=== PATIENT | female | born 1965 | race Hispanic/Latino ===

== ENCOUNTER 2018-03-28 12:10 | Emergency (ER) | payer MEDICARE ==
[2018-03-28] MEDS ORDERED: HYDROCODONE/ACETAMINOPHEN 10/325 MG TAB ONE (12:30)
[2018-03-28 13:28] LABS: EOSINOPHILS % (AUTO) 2.2 % (0.0-8.0); HEMATOCRIT 31.2 % (36-48); LYMPHOCYTES % (AUTO) 22.1 % (21.0-51.0); MEAN CORPUSCULAR HEMOGLOBIN 28.1 pg (27.0-33.0); MEAN CORPUSCULAR HGB CONC 33.3 g/dL (32.0-36.0); MEAN CORPUSCULAR VOLUME 84.5 fL (79-99); MONOCYTES % (AUTO) 7.9 % (3.0-13.0); NEUTROPHILS % (AUTO) 66.8 % (40.0-77.0); NUCLEATED RED BLOOD CELLS 0.1 % (0.0-0.19); PLATELET COUNT (AUTO) 276 K/uL (130-400); RED CELL DISTRIBUTION WIDTH 14.2 % (11.0-15.5); WHITE BLOOD COUNT (AUTO) 9.5 K/uL (4.8-10.8)
[2018-03-28] MEDS ORDERED: MIDAZOLAM HCL 5 MG/ML 2ML VIAL IV ONE ×2 (13:35→14:07)
[2018-03-28] MEDS ORDERED: ETOMIDATE 2 MG/ML 10 ML VIAL ONE (13:35)
[2018-03-28 13:48] LABS: INR 0.95 (0.85-1.15); PARTIAL THROMBOPLASTIN TIME 36.6 SEC (26.3-35.5)
[2018-03-28 14:20] LABS: CREATININE 1.6 mg/dL (0.5-1.5); POTASSIUM 4.2 mmol/L (3.5-5.1)
[2018-03-28 14:25] LABS: ALBUMIN 3.2 g/dL (3.5-5.0); BILIRUBIN,TOTAL 0.2 mg/dL (0.2-1.0)
== END 2018-03-28 16:50 | disposition home or self-care (01) ==
LOC: EDH 12:10
DX: S82.851A Displaced trimalleolar fracture of right lower leg, initial encounter for closed fracture (principal); S93.04XA Dislocation of right ankle joint, initial encounter; R79.1 Abnormal coagulation profile; E11.9 Type 2 diabetes mellitus without complications; E78.5 Hyperlipidemia, unspecified; I10 Essential (primary) hypertension; E07.9 Disorder of thyroid, unspecified; Z85.41 Personal history of malignant neoplasm of cervix uteri; Z95.1 Presence of aortocoronary bypass graft; Z90.710 Acquired absence of both cervix and uterus; Z72.0 Tobacco use; W22.8XXA Striking against or struck by other objects, initial encounter; Y93.89 Activity, other specified; Y92.89 Other specified places as the place of occurrence of the external cause; Y99.8 Other external cause status
CPT/HCPCS: 27818; 36415; 73600; 73610; 80053; 85025; 85610; 85730; 93005; 96374; 99152; 99285; J2250; J3490

== ENCOUNTER → 2019-06-03 | Outpatient (CLI) | payer MEDICARE ==
[~2019-06-03] VITALS: Ht 154.9 cm; Wt 92.5 kg
[~2019-06-03] MED LIST: REGADENOSON 0.4 MG/5 ML PF SYG IVP SCH
== END | disposition home or self-care (01) ==
LOC: SHCH 08:53
PROVIDERS: ATTEND Internal Medicine Cardiovascular Disease
DX: R07.9 Chest pain, unspecified (principal); R06.09 Other forms of dyspnea
CPT/HCPCS: 78452; 93017; 96374; A9500 ×2; J2785

== ENCOUNTER → 2019-07-27 | Outpatient (CLI) | payer MEDICARE ==
[~2019-07-27] VITALS: Ht 154.9 cm; Wt 91.4 kg
[~2019-07-27] MED LIST changes: +ALLO100T PO; +ASPI81TA40 PO; +ATOR40TA69 PO; +BIOTIN PO; +BISA5TAB12 PO; +CHOL500050 PO; +FERR325T22 PO; +FLUO40CA7 PO; +GABA600T10 PO; +ICOS1CAP PO; +INSU200I SQ; +INSU300I SQ; +LABE200T5 PO; +LEVO137T2 PO; +LORA10TA7 PO; +PHARMACY COMMUNICATION MISC SCH; +PIOG15TA66 PO; +RANO10004 PO; -REGADENOSON 0.4 MG/5 ML PF SYG IVP SCH; +SODI650T PO; +SODIUM CHLORIDE 0.9% 500ML 500 ML IV SCH; +TORS20TA4 PO; +VICTOZA SQ
[2019-07-27 08:20] VITALS: BP 141/62
[2019-07-27 08:43] LABS: BASOPHILS % (AUTO) 0.5 % (0.0-5.0); EOSINOPHILS % (AUTO) 1.9 % (0.0-8.0); HEMATOCRIT 31.4 % (36-48); LYMPHOCYTES % (AUTO) 25.6 % (21.0-51.0); MEAN CORPUSCULAR HEMOGLOBIN 28.7 pg (27.0-33.0); MEAN CORPUSCULAR HGB CONC 33.8 g/dL (32.0-36.0); MEAN CORPUSCULAR VOLUME 85.1 fL (79-99); MONOCYTES % (AUTO) 7.7 % (3.0-13.0); NEUTROPHILS % (AUTO) 64.3 % (40.0-77.0); PLATELET COUNT (AUTO) 260 K/uL (130-400); RED CELL DISTRIBUTION WIDTH 14.1 % (11.0-15.5); WHITE BLOOD COUNT (AUTO) 8.9 K/uL (4.8-10.8)
[2019-07-27 08:43] LABS: APPEARANCE,URINE CLEAR (CLEAR); BILIRUBIN,URINE NEGATIVE (NEGATIVE); COLOR,URINE YELLOW (YELLOW); GLUCOSE, URINE (UA) NEGATIVE (NEGATIVE); KETONES,URINE NEGATIVE (NEGATIVE); LEUKOCYTE ESTERASE ,URINE TRACE (NEGATIVE); NITRATE,URINE NEGATIVE (NEGATIVE); OCCULT BLOOD,URINE NEGATIVE (NEGATIVE); PH,URINE 5.5 (5.0-8.0); PROTEIN,URINE 100 mg/dL (NEGATIVE); UROBILINOGEN,URINE 0.2 mg/dL (0.2-1.0)
[2019-07-27 08:51] LABS: CREATININE 2.6 mg/dL (0.5-1.5); POTASSIUM 4.4 mmol/L (3.5-5.1)
[2019-07-27 08:54] LABS: INR 0.95 (0.85-1.15); PARTIAL THROMBOPLASTIN TIME 34.3 SEC (26.3-35.5)
--- NOTE | 2019-07-27 09:00 | NUR ---
ALLERGY PT DENIES ALLERGY TO FISH OIL
[2019-07-27 09:12] LABS: BACTERIA,URINE Rare /HPF (None Seen); RBC,URINE 0-1 /HPF (0-1); SQUAMOUS EPITHELIAL CELL,UR Rare /HPF (0-2); WBC,URINE 0-1 /HPF (0-1)
--- NOTE | 2019-07-27 09:29 | NUR ---
NOTE PT STATES SHE IS A JEHOVA'S WITNESS BUT WILL CONSENT TO RECEIVE BLOOD TRANSFUSION DEEMED NECESSARY Addendum: 07/27/19 at 0931 by HIEN LR RN RN Amended: Links added.
--- NOTE | 2019-07-28 10:25 | NUR ---
labs abnormal labs reported to Janna Sawyer QUALITY ASSURANCE MONITOR FINAL( Dr. Chauncey Prater), she stated she will speak to Dr. Chauncey Prater and call back with further orders. reported bun, crea, h&h,
--- NOTE | 2019-07-28 13:00 | NUR ---
LABS RECEIVED CALL BACK FOR ABNORMAL LABS , PER DR Chauncey RENEE CANCEL PROCEDURE,
== END ==
LOC: EDSTATUS 08:00 → DAH 10:00
PROVIDERS: ATTEND Internal Medicine Cardiovascular Disease
DX: Z01.818 Encounter for other preprocedural examination (principal); I25.119 Atherosclerotic heart disease of native coronary artery with unspecified angina pectoris; Z79.01 Long term (current) use of anticoagulants
CPT/HCPCS: 36415; 71045; 80048; 81001; 85025; 85610; 85730; 93005

== ENCOUNTER 2021-10-08 06:02 | Day surgery (SDC) | payer OTHER, MEDICARE ==
[~2021-10-08] VITALS: Ht 152.4 cm; Wt 91.6 kg
[~2021-10-08 06:02] MED LIST changes: -BIOTIN PO; +CALC-909 PO; -PHARMACY COMMUNICATION MISC SCH; -PIOG15TA66 PO; -RANO10004 PO; +RANO10005 PO; -SODI650T PO; -SODIUM CHLORIDE 0.9% 500ML 500 ML IV SCH; -TORS20TA4 PO; -VICTOZA SQ
[2021-10-08] MEDS ORDERED: 0.9%NACL 1000ML 1,000 ML IV ONE (06:19)
[2021-10-08 07:04] LABS: CREATININE 4.8 mg/dL (0.5-1.5)
[2021-10-08 07:08] VITALS: BP 189/74
== END 2021-10-08 07:35 | disposition home or self-care (01) ==
LOC: DAH 06:02 → ENDO 06:02
PROVIDERS: ATTEND Internal Medicine Gastroenterology
DX: K59.00 Constipation, unspecified (principal); Z86.010 Personal history of colon polyps; Z20.822 Contact with and (suspected) exposure to COVID-19; K44.9 Diaphragmatic hernia without obstruction or gangrene; K76.0 Fatty (change of) liver, not elsewhere classified; E11.22 Type 2 diabetes mellitus with diabetic chronic kidney disease; I12.0 Hypertensive chronic kidney disease with stage 5 chronic kidney disease or end stage renal disease; N18.6 End stage renal disease; D64.9 Anemia, unspecified; I25.10 Atherosclerotic heart disease of native coronary artery without angina pectoris; E78.5 Hyperlipidemia, unspecified; E03.9 Hypothyroidism, unspecified; M10.9 Gout, unspecified; Z99.2 Dependence on renal dialysis; Z79.4 Long term (current) use of insulin; Z90.710 Acquired absence of both cervix and uterus; Z90.49 Acquired absence of other specified parts of digestive tract; Z98.890 Other specified postprocedural states; Z90.721 Acquired absence of ovaries, unilateral; Z83.3 Family history of diabetes mellitus; Z87.891 Personal history of nicotine dependence; Z72.89 Other problems related to lifestyle; Z79.899 Other long term (current) drug therapy; Z53.8 Procedure and treatment not carried out for other reasons
CPT/HCPCS: 36415; 80048; 82948; 87635; C9803; J7030

== ENCOUNTER 2021-10-25 15:27 | Emergency (ER) | payer OTHER, MEDICARE ==
[~2021-10-25] VITALS: Ht 152.4 cm; Wt 94.8 kg
[2021-10-25] MEDS ORDERED: ATENOLOL 25 MG TABLET PO ONE (17:30)
[2021-10-25] MEDS ORDERED: ATENOLOL 25 MG TABLET ONE (17:38)
[2021-10-25 19:33] VITALS: BP 193/76
== END 2021-10-25 19:32 | disposition home or self-care (01) ==
LOC: EDH 15:27
DX: J06.9 Acute upper respiratory infection, unspecified (principal); I12.0 Hypertensive chronic kidney disease with stage 5 chronic kidney disease or end stage renal disease; E11.22 Type 2 diabetes mellitus with diabetic chronic kidney disease; N18.6 End stage renal disease; Z20.822 Contact with and (suspected) exposure to COVID-19; E78.00 Pure hypercholesterolemia, unspecified; Z99.2 Dependence on renal dialysis; Z79.4 Long term (current) use of insulin; Z79.82 Long term (current) use of aspirin; Z79.899 Other long term (current) drug therapy
CPT/HCPCS: 87635; 99285; C9803

== ENCOUNTER 2022-04-02 16:53 | Emergency (ER) | payer OTHER, MEDICARE ==
[2022-04-02] MEDS ORDERED: DEXTROSE 50%-WATER 50 ML DISP.SYRIN IV ONE (17:03)
[2022-04-02 17:16] VITALS: BP 142/53
== END 2022-04-02 19:06 | disposition home or self-care (01) ==
LOC: EDH 16:53
DX: E10.649 Type 1 diabetes mellitus with hypoglycemia without coma (principal); I12.9 Hypertensive chronic kidney disease with stage 1 through stage 4 chronic kidney disease, or unspecified chronic kidney disease; N18.9 Chronic kidney disease, unspecified; Z98.890 Other specified postprocedural states
CPT/HCPCS: 82948 ×2; 93005; 96374; 99283; J7070

== ENCOUNTER 2022-04-26 14:12 | Emergency (ER) | payer MEDICARE ==
[~2022-04-26] VITALS: Ht 152.4 cm; Wt 90.8 kg
[2022-04-26] MEDS ORDERED: DEXAMETHASONE SOD PHOSPHATE 4 MG/ML 1ML VIAL IM ONE (15:30)
[2022-04-26] MEDS ORDERED: ACETAMINOPHEN 500 MG TABLET PO ONE (15:30)
[2022-04-26] MEDS ORDERED: TRAMADOL HCL 50 MG TABLET PO ONE (15:30)
[2022-04-26] MEDS ORDERED: LIDO1ADH71 TP (16:16)
[2022-04-26] MEDS ORDERED: TRAM50TA2 PO (16:16)
[2022-04-26 16:35] VITALS: BP 125/78
== END 2022-04-26 16:40 | disposition home or self-care (01) ==
LOC: EDH 14:12
DX: M54.42 Lumbago with sciatica, left side (principal); E78.00 Pure hypercholesterolemia, unspecified; I12.0 Hypertensive chronic kidney disease with stage 5 chronic kidney disease or end stage renal disease; E11.22 Type 2 diabetes mellitus with diabetic chronic kidney disease; N18.6 End stage renal disease; E03.9 Hypothyroidism, unspecified; Z79.899 Other long term (current) drug therapy
CPT/HCPCS: 96372; 99283; J1100

== ENCOUNTER 2022-05-30 10:45 | Emergency (ER) | payer OTHER, MEDICARE ==
[~2022-05-30] VITALS: Ht 149.9 cm; Wt 90.7 kg
[~2022-05-30 10:45] MED LIST changes: +ALLERGY RELF PO; +ATOR10 PO; -ATOR40TA69 PO; -BISA5TAB12 PO; -CHOL500050 PO; +FOLI0.8T2 PO; -INSU200I SQ; -INSU300I SQ; +ISOS20TA85 PO; +LEVO500T90 PO; +LIDO1ADH71 TP; -LORA10TA7 PO; +MELO10CA3 PO; +NITR0.4T50 SL; +PANT40TA54 PO; +RANO500T2 PO; +SODI650T PO; +TRAM50TA2 PO
[2022-05-30] MEDS ORDERED: TRAMADOL HCL 50 MG TABLET PO SCH (12:30)
[2022-05-30] MEDS ORDERED: CYCL10TA16 PO (12:30)
[2022-05-30] MEDS ORDERED: CLONIDINE HCL 0.2 MG TABLET PO SCH (12:30)
[2022-05-30] MEDS ORDERED: ACETAMINOPHEN 500 MG TABLET PO SCH (12:30)
[2022-05-30] MEDS ORDERED: CYCLOBENZAPRINE HCL 10 MG TABLET PO SCH (12:30)
[2022-05-30] MEDS ORDERED: ACET-2247 PO (12:30)
[2022-05-30 13:02] VITALS: BP 169/61
== END 2022-05-30 13:11 | disposition home or self-care (01) ==
LOC: EDH 10:45
DX: S20.212A Contusion of left front wall of thorax, initial encounter (principal); I12.0 Hypertensive chronic kidney disease with stage 5 chronic kidney disease or end stage renal disease; E11.22 Type 2 diabetes mellitus with diabetic chronic kidney disease; N18.6 End stage renal disease; E78.00 Pure hypercholesterolemia, unspecified; Z99.2 Dependence on renal dialysis; Z90.89 Acquired absence of other organs; Z98.890 Other specified postprocedural states; Z79.899 Other long term (current) drug therapy; Z79.82 Long term (current) use of aspirin; W19.XXXA Unspecified fall, initial encounter; Y93.89 Activity, other specified; Y92.89 Other specified places as the place of occurrence of the external cause; Y99.8 Other external cause status
CPT/HCPCS: 71046

== ENCOUNTER 2022-08-25 09:00 | Emergency (ER) | payer OTHER, MEDICARE ==
[~2022-08-25 09:00] MED LIST changes: +ACET-2247 PO; +CYCL10TA16 PO; -LABE200T5 PO; +LABE200T7 PO; +LEVO-70 PO; -LEVO500T90 PO
[2022-08-25 09:18] LABS: BASOPHILS % (AUTO) 0.5 % (0.0-5.0); EOSINOPHILS % (AUTO) 1.8 % (0.0-8.0); HEMATOCRIT 30.6 % (36-48); LYMPHOCYTES % (AUTO) 18.9 % (21.0-51.0); MEAN CORPUSCULAR HEMOGLOBIN 27.6 pg (27.0-33.0); MEAN CORPUSCULAR HGB CONC 32.4 g/dL (32.0-36.0); MEAN CORPUSCULAR VOLUME 85.2 fL (79-99); MONOCYTES % (AUTO) 6.6 % (3.0-13.0); NEUTROPHILS % (AUTO) 71.8 % (40.0-77.0); PLATELET COUNT (AUTO) 208 K/uL (130-400); RED BLOOD CELL COUNT(AUTO) 3.59 MIL/uL (4.00-5.50); RED CELL DISTRIBUTION WIDTH 12.9 % (11.0-15.5); WHITE BLOOD COUNT (AUTO) 7.6 K/uL (4.8-10.8)
[2022-08-25 09:37] LABS: CREATININE 4.1 mg/dL (0.5-1.5); POTASSIUM 3.8 mmol/L (3.5-5.1)
[2022-08-25 09:41] LABS: APPEARANCE,URINE CLEAR (CLEAR); BILIRUBIN,URINE NEGATIVE (NEGATIVE); COLOR,URINE LIGHT-YELLOW (YELLOW); GLUCOSE, URINE (UA) 500 mg/dL (NEGATIVE); KETONES,URINE 5 mg/dL (NEGATIVE); LEUKOCYTE ESTERASE ,URINE NEGATIVE Leu/uL (NEGATIVE); NITRATE,URINE NEGATIVE (NEGATIVE); OCCULT BLOOD,URINE SMALL (NEGATIVE); PROTEIN,URINE 600 mg/dL (NEGATIVE); UROBILINOGEN,URINE 0.2 mg/dL (0.2-1.0)
[2022-08-25 09:42] LABS: TOTAL PROTEIN, SERUM 6.2 g/dL (6.0-8.3)
[2022-08-25 09:43] LABS: MUCUS,URINE RARE LPF (None Seen); RBC,URINE 0-1 /HPF (0-1); RENAL EPITHELIAL CELLS,URINE RARE /HPF (None Seen)
[2022-08-25] MEDS ORDERED: BISACODYL 10 MG SUPP.RECT RC ONE (10:30)
[2022-08-25] MEDS ORDERED: NITROGLYCERIN 1GM OINT 1 INCH/1GM TD ONE (10:30)
[2022-08-25] MEDS ORDERED: ASPIRIN 81MG CHEW TAB PO ONE (10:30)
[2022-08-25] MEDS ORDERED: ONDANSETRON 4MG INJ IVP ONE (10:30)
[2022-08-25] MEDS ORDERED: MORPHINE 2 MG SYG IVP ONE (10:30)
[2022-08-25 14:20] VITALS: BP 166/91
== END 2022-08-25 14:28 | disposition home or self-care (01) ==
LOC: EDH 09:00
DX: R10.12 Left upper quadrant pain (principal); K59.00 Constipation, unspecified; R07.89 Other chest pain; I12.0 Hypertensive chronic kidney disease with stage 5 chronic kidney disease or end stage renal disease; E11.22 Type 2 diabetes mellitus with diabetic chronic kidney disease; N18.6 End stage renal disease; Z99.2 Dependence on renal dialysis; I25.10 Atherosclerotic heart disease of native coronary artery without angina pectoris; E78.00 Pure hypercholesterolemia, unspecified; Z98.890 Other specified postprocedural states; Z79.899 Other long term (current) drug therapy; Z60.2 Problems related to living alone
CPT/HCPCS: 99285; 74176; 96374; 96375; 84484 ×2; 80053; 83880; 83690; 85025; 86140; 81001; 36415; 93005 ×2; J2405

== ENCOUNTER 2023-02-25 10:44 | Emergency (ER) | payer OTHER, MEDICARE ==
[~2023-02-25] VITALS: Ht 152.4 cm; Wt 84.8 kg
[2023-02-25 11:27] LABS: BASOPHILS % (AUTO) 0.4 % (0.0-5.0); EOSINOPHILS % (AUTO) 1.9 % (0.0-8.0); HEMATOCRIT 33.3 % (36-48); LYMPHOCYTES % (AUTO) 20.1 % (21.0-51.0); MEAN CORPUSCULAR HEMOGLOBIN 26.6 pg (27.0-33.0); MEAN CORPUSCULAR HGB CONC 30.9 g/dL (32.0-36.0); MONOCYTES % (AUTO) 9.8 % (3.0-13.0); NEUTROPHILS % (AUTO) 67.3 % (40.0-77.0); PLATELET COUNT (AUTO) 162 K/uL (130-400); RED BLOOD CELL COUNT(AUTO) 3.87 MIL/uL (4.00-5.50); RED CELL DISTRIBUTION WIDTH 13.9 % (11.0-15.5); WHITE BLOOD COUNT (AUTO) 9.3 K/uL (4.8-10.8)
[2023-02-25 11:39] LABS: CREATININE 6.9 mg/dL (0.5-1.5); POTASSIUM 3.8 mmol/L (3.5-5.1); TOTAL PROTEIN, SERUM 5.9 g/dL (6.0-8.3)
[2023-02-25 12:02] VITALS: BP 173/75
== END 2023-02-25 13:20 | disposition home or self-care (01) ==
LOC: EDH 10:44
DX: B34.9 Viral infection, unspecified (principal); I10 Essential (primary) hypertension; E11.9 Type 2 diabetes mellitus without complications; E78.00 Pure hypercholesterolemia, unspecified; Z20.822 Contact with and (suspected) exposure to COVID-19; Z79.899 Other long term (current) drug therapy; Z95.1 Presence of aortocoronary bypass graft; Z99.2 Dependence on renal dialysis; Z79.82 Long term (current) use of aspirin; Z98.890 Other specified postprocedural states
CPT/HCPCS: 99283; 87635; 80053; 83690; 85025; 87804 ×2; 36415; C9803

== ENCOUNTER 2023-07-04 11:58 | Emergency (ER) | payer OTHER, MEDICARE ==
[~2023-07-04] VITALS: Ht 152.4 cm; Wt 81.6 kg
[2023-07-04 14:49] VITALS: BP 184/57; PULSE 70; RESP 16; O2SAT 97
[2023-07-04] MEDS ORDERED: IBUP-2070 PO (16:11)
[2023-07-04] MEDS ORDERED: HYDROCODONE/ACETAMINOPHEN 5/325 MG TAB PO ONE (16:30)
== END 2023-07-04 16:28 | disposition home or self-care (01) ==
LOC: EDH 11:58
DX: S82.092A Other fracture of left patella, initial encounter for closed fracture (principal); I10 Essential (primary) hypertension; E11.9 Type 2 diabetes mellitus without complications; Z85.41 Personal history of malignant neoplasm of cervix uteri; Z95.1 Presence of aortocoronary bypass graft; Z90.710 Acquired absence of both cervix and uterus; Z79.82 Long term (current) use of aspirin; Z79.899 Other long term (current) drug therapy; W01.0XXA Fall on same level from slipping, tripping and stumbling without subsequent striking against object, initial encounter; Y93.89 Activity, other specified; Y92.89 Other specified places as the place of occurrence of the external cause; Y99.8 Other external cause status
CPT/HCPCS: 73562; 73700

== ENCOUNTER 2023-10-12 12:53 | Emergency (ER) | payer OTHER, MEDICARE ==
[~2023-10-12] VITALS: Ht 152.4 cm; Wt 83.9 kg
[~2023-10-12 12:53] MED LIST changes: +IBUP-2070 PO
[2023-10-12 13:37] LABS: BASOPHILS # (AUTO) 0.04 K/uL (0.00-0.20); BASOPHILS % (AUTO) 0.5 % (0.0-5.0); EOSINOPHILS # (AUTO) 0.18 K/uL (0.00-0.70); EOSINOPHILS % (AUTO) 2.1 % (0.0-8.0); HEMATOCRIT 30.6 % (36-48); IMMATURE GRANULOCYTE ABSOLUTE 0.03 K/uL (0-1); LYMPHOCYTES # (AUTO) 1.5 K/uL (1.0-4.8); LYMPHOCYTES % (AUTO) 17.4 % (21.0-51.0); MEAN CORPUSCULAR HEMOGLOBIN 27.3 pg (27.0-33.0); MEAN CORPUSCULAR HGB CONC 32.4 g/dL (32.0-36.0); MEAN CORPUSCULAR VOLUME 84.3 fL (79-99); MONOCYTES # (AUTO) 0.6 K/uL (0.1-1.0); MONOCYTES % (AUTO) 7.1 % (3.0-13.0); NEUTROPHILS # (AUTO) 6.1 K/uL (1.8-7.7); NEUTROPHILS % (AUTO) 72.5 % (40.0-77.0); PLATELET COUNT (AUTO) 141 K/uL (130-400); RED BLOOD CELL COUNT(AUTO) 3.63 MIL/uL (4.00-5.50); WHITE BLOOD COUNT (AUTO) 8.4 K/uL (4.8-10.8)
[2023-10-12 14:15] LABS: CREATININE 5.3 mg/dL (0.5-1.5); POTASSIUM 4.2 mmol/L (3.5-5.1)
[2023-10-12 14:25] LABS: ALBUMIN 3.2 g/dL (3.5-5.0); BILIRUBIN,TOTAL 0.6 mg/dL (0.2-1.0); TOTAL PROTEIN, SERUM 6.7 g/dL (6.0-8.3)
[2023-10-12 15:00] VITALS: BP 200/94; PULSE 84; RESP 18; O2SAT 98
== END 2023-10-12 15:15 | disposition left against medical advice (07) ==
LOC: EDH 12:53
DX: R07.9 Chest pain, unspecified (principal); Z53.21 Procedure and treatment not carried out due to patient leaving prior to being seen by health care provider
CPT/HCPCS: 36415; 71045; 80053; 84484; 85025; 93005; 99281